=== PATIENT | male | born 1940 | race Caucasian/White ===

== ENCOUNTER 2019-06-20 07:39 | Inpatient (IN) | payer OTHER, MEDICARE ==
[~2019-06-20] VITALS: Ht 172.7 cm; Wt 90.7 kg
[2019-06-20 08:04] VITALS: BP_SYST 161
--- NOTE | 2019-06-20 08:11 | NUR ---
PATIENT PRESENTS TO THE ER WITH HX OF DIZZINESS WITH NAUSEA AND DIAPHORESIS FOR TWO DAYS; SYMPTOMS ARE POSTIONAL AND WORSEN UPON HEAD MOVEMENT TO THE RIGHT; NO TRAUMA, NO OTHER REMARKABLE S/S; PATIENT TO ER #[id number] AT 0800 AND ERMD EVALUATION AT 0810
[2019-06-20] MEDS ORDERED: ALLO100T (08:14)
[2019-06-20] MEDS ORDERED: ONDANSETRON HCL 4 MG/2 ML VIAL IVP ONE (08:15)
[2019-06-20] MEDS ORDERED: DICL75TA5 (08:19)
[2019-06-20] MEDS ORDERED: CORCR10 (08:19)
[2019-06-20] MEDS ORDERED: PERC10 (08:19)
[2019-06-20] MEDS ORDERED: HYDR-4039 (08:19)
[2019-06-20] MEDS ORDERED: SIMV20TA2 (08:19)
[2019-06-20] MEDS ORDERED: TEMA15CA (08:19)
[2019-06-20 08:40] LABS: BASOPHILS # (AUTO) 0.1 K/uL (0.0-0.2); BASOPHILS % (AUTO) 0.9 % (0.0-2.0); EOSINOPHILS # (AUTO) 0.8 K/uL (0.0-0.4); EOSINOPHILS % (AUTO) 9.7 % (0.0-4.0); HEMATOCRIT 44.3 % (36-54); LYMPHOCYTES # (AUTO) 1.8 K/uL (1.0-5.5); LYMPHOCYTES % (AUTO) 21.4 % (20.5-51.5); MEAN CORPUSCULAR HEMOGLOBIN 30 pg (27-31); MEAN CORPUSCULAR HGB CONC 34 % (32-36); MEAN CORPUSCULAR VOLUME 88 fL (79.0-98.0); MONOCYTES # (AUTO) 0.7 K/uL (0.0-1.0); MONOCYTES % (AUTO) 8.4 % (1.7-9.3); NEUTROPHILS # (AUTO) 4.9 K/uL (1.8-7.7); NEUTROPHILS % (AUTO) 59.6 % (40.0-70.0); PLATELET COUNT (AUTO) 173 K/uL (130-430); RED BLOOD CELL COUNT(AUTO) 5.02 MIL/uL (4.2-6.2); WHITE BLOOD COUNT (AUTO) 8.2 K/uL (4.8-10.8)
--- NOTE | 2019-06-20 08:45 | NUR ---
REASSESSMENT; PATIENT STATES HIS SYMPTOMS ARE RESOLVE WITH BUT MINIMAL DIZZINESS CURRENTLY; DISPOSITION PENDING
--- NOTE | 2019-06-20 08:46 | NUR ---
PATIENT WAS PLACED ON TECHNOLOGY RESOURCE TEACHER AND SAO2 UPON ADMISSION
[2019-06-20 08:50] LABS: ANION GAP 6 (5-15); CALCIUM 8.9 mg/dL (8.4-11.0); CHLORIDE 106 mmol/L (98-107); CREATININE 1.81 mg/dL (0.55-1.30); GLUCOSE 183 mg/dL (70-99); POTASSIUM 4.5 mmol/L (3.5-5.1); SODIUM SERUM 141 mmol/L (136-145); UREA NITROGEN, BLOOD 30 mg/dL (8-21)
[2019-06-20 09:05] LABS: ALANINE AMINOTRANSFERASE 31 U/L (12-78); ALBUMIN 3.5 g/dL (3.4-4.8); ASPARTATE AMINOTRANSFERASE 15 U/L (10-37); TOTAL BILIRUBIN 0.5 mg/dL (0.0-1.0)
--- NOTE | 2019-06-20 09:47 | NUR ---
REASSESSMENT; PATIENT STATES HIS SYMPTOMS ARE RESOLVED BUT WITH MINIMAL NAUSEA; DISPOSITION PENDING
[2019-06-20] MEDS ORDERED: NS 500 ML IV ONE (10:15)
[2019-06-20] MEDS ORDERED: KCL 20 mEq in 0.45% NS 1000 mL 1,000 ML IV ONE (11:15)
--- NOTE | 2019-06-20 11:16 | NUR ---
REASSESSMENT BY ERMDionne; PREPARATIONS TO ADMIT TO TELE; CALL PLACED TO DR HARMON AND ORDERS PROCESSED; PATIENT TRANSPORTED TO TELE WITH PATENT IV AND RESOLVED SYMPTOMS; IMPROVED; REPORT TO RECEIVING NURSE AT BEDSIDE
--- NOTE | 2019-06-20 11:30 | NUR ---
SOLAR MANAGER NOTES RECEIVED PATIENT FROM ER MOMO , NO DISTRESS, RESP EVEN AND UNLABORED, AMBULATORY WITH HL TO LEFT HAND G 24, PATIENT IVF TO START ONCE WITH IVF AVAIL IVF FROM PHARMACY, SAFETY ENSURED
[2019-06-20 13:14] VITALS: BP_SYST 155
--- NOTE | 2019-06-20 14:51 | NUR ---
ROUNDS PATIENT IN BED NO DISTRESS NO COMPLAIN OF CHEST PAIN
[2019-06-20] MEDS ORDERED: OXYCODONE/ACETAMINOPHEN *10*mg/325 mg TABLET PO SCH (15:30)
[2019-06-20] MEDS ORDERED: MECLIZINE HCL 25 MG TABLET (ANITVERT) PO ONE ×2 (15:45→21:00)
--- NOTE | 2019-06-20 16:00 | NUR ---
MD'S ROUNDS PATIENT SEEN BY MD HUYNH RECONCILLED
[2019-06-20 16:10] VITALS: BP_SYST 138
--- NOTE | 2019-06-20 18:56 | NUR ---
ENDORSEMENT WILL ENDORSE TO NEXT SHIFT CONT CARE , PATIENT WILL HAVE MRI W/W/O CONTRAST IN AM , WILL SECURE CONSENT ONCE PATIENT DONE EATING, NO COMPLAIN OF PAIN
[2019-06-20 19:50] VITALS: BP_SYST 146
--- NOTE | 2019-06-20 19:50 | NUR ---
INITIAL NOTE AT INITIAL ASSESSMENT, PATIENT IS RESTING IN BED, STABLE, NO SIGNS OF RESPIRATORY DISTRESS. SON IS AT BEDSIDE. PLAN OF CARE FOR THE EVENING IS COMMUNICATED WITH THE PATIENT AND HIS SON. PATIENT IS SUCCESSFUL IN DEMONSTRATION OF CORRECT USAGE OF CALL LIGHT. CALL LIGHT IS PLACED WITHIN REACH OF PATIENT. BED IS LOCKED, ALARMED, AND AT THE LOWEST LEVEL. FALL, SAFETY, AND RESPIRATORY PRECAUTIONS WILL BE TAKEN THROUGHOUT THE SHIFT.
[2019-06-20] MEDS: ALLOPURINOL 100 MG TABLET (ZYLOPRIM) PO SCH (20:56)
[2019-06-20] MEDS: TEMAZEPAM 15 MG CAPSULE PO SCH (20:58)
[2019-06-20] MEDS: hydrALAZINE HCL 25 MG TABLET PO SCH (20:58)
[2019-06-20] MEDS: MECLIZINE HCL 25 MG TABLET (ANITVERT) PO SCH (20:58)
[2019-06-20] MEDS: CARVEDILOL 25 MG TABLET (COREG) PO SCH (20:59)
--- NOTE | 2019-06-20 21:50 | NUR ---
HYGIENE CARE NOTE SCHEDULED NIGHT TIME MEDICATIONS ARE GIVEN AT THIS TIME. SON IS AT BEDSIDE. PATIENT IS RESTING IN BED, STABLE, NO SIGNS OF RESPIRATORY DISTRESS. BED IS LOCKED, ALARMED, AND AT THE LOWEST LEVEL.
[2019-06-20 22:25] VITALS: BP_SYST 146
[2019-06-20] MEDS: LevALBUTEROL HCL 1.25 MG/0.5 ML *CONC.* VIAL.NEB (XOPENEX CONC.) INH SCH (22:34)
--- NOTE | 2019-06-20 23:50 | NUR ---
NOTE PATIENT IS SLEEPING, STABLE, NO SIGNS OF RESPIRATORY DISTRESS. CALL LIGHT PLACED WITHIN REACH. BED IS LOCKED, ALARMED, AND AT THE LOWEST LEVEL.
[2019-06-21] VITALS: BP_SYST 134
--- NOTE | 2019-06-21 01:50 | NUR ---
NOTE PATIENT IS SLEEPING, STABLE, NO SIGNS OF RESPIRATORY DISTRESS. CALL LIGHT PLACED WITHIN REACH. BED IS LOCKED, ALARMED, AND AT THE LOWEST LEVEL.
--- NOTE | 2019-06-21 03:50 | NUR ---
NOTE PATIENT IS SLEEPING, STABLE, NO SIGNS OF RESPIRATORY DISTRESS. CALL LIGHT PLACED WITHIN REACH. BED IS LOCKED, ALARMED, AND AT THE LOWEST LEVEL.
--- NOTE | 2019-06-21 04:35 | NUR ---
NOTE PATIENT IS SLEEPING, STABLE, NO SIGNS OF RESPIRATORY DISTRESS. CALL LIGHT PLACED WITHIN REACH. BED IS LOCKED, ALARMED, AND AT THE LOWEST LEVEL.
--- NOTE | 2019-06-21 05:10 | NUR ---
NOTE PATIENT IS SLEEPING, STABLE, NO SIGNS OF RESPIRATORY DISTRESS. CALL LIGHT IS WITHIN REACH. BED IS LOCKED, ALARMED, AND THE LOWEST LEVEL.
--- NOTE | 2019-06-21 06:30 | NUR ---
CLOSING NOTE PATIENT SLEPT WELL THROUGHOUT THE NIGHT. AT THIS TIME, PATIENT IS RESTING IN BED, STABLE, NO SIGNS OF RESPIRATORY DISTRESS. CALL LIGHT IS WITHIN REACH. BED IS LOCKED, AND AT THE LOWEST LEVEL. FALL, SAFETY, AND RESPIRATORY PRECAUTIONS HAVE BEEN IN PLACE THROUGHOUT THE NIGHT. WILL CONTINUE TO MONITOR UNTIL SHIFT REPORT IS GIVEN AT BEDSIDE TO AM NURSE.
[2019-06-21 08:00] VITALS: BP_SYST 124
--- NOTE | 2019-06-21 08:00 | NUR ---
ASSUMPTION OF CARE: RECEIVED PT ASLEEP, AROUSED VIA VERBAL STIMULI, DX: RISK FOR INJURY, R/T DEHYDRATION, DIZZINESS, VSS, AFEBRILE, NO S/S OF DISTRESS, PT HAS ELEVATED BUN/CREAT=30/1.81, MPhilippe AWARE. BREATH SOUNDS ARE CLEAR, BREATHING UNLABORED, SATURATING 95% ORA, IV SITE INTACT, PATENT, NO REDNESS OR SWELLING, ORIENTED TO UNIT, CALL LIGHT PLACED WITHIN REACH, WILL CONT' TO MONITOR AND ASSESS.
[2019-06-21] MEDS: LevALBUTEROL HCL 1.25 MG/0.5 ML *CONC.* VIAL.NEB (XOPENEX CONC.) INH SCH ×2 (09:25→15:35)
--- NOTE | 2019-06-21 10:00 | NUR ---
CVT RN: MORNING MEDS GIVEN, PER ORDERED BY Viridiana, TOLERATED WELL, PT EDUCATED ON PURPOSE FOR EACH MED GIVEN, VERBALIZES UNDERSTANDING, CALL LIGHT PLACED WITHIN REACH, WILL CONT' TO MONITOR AND ASSESS.
[2019-06-21] MEDS: hydrALAZINE HCL 25 MG TABLET PO SCH ×3 (10:13→20:28)
[2019-06-21] MEDS: MECLIZINE HCL 25 MG TABLET (ANITVERT) PO SCH ×2 (10:13→20:22)
[2019-06-21] MEDS: CARVEDILOL 25 MG TABLET (COREG) PO SCH ×2 (10:14→20:27)
[2019-06-21] MEDS: SIMVASTATIN 20 MG TABLET PO SCH (10:14)
[2019-06-21 11:30] VITALS: BP_SYST 134
--- NOTE | 2019-06-21 12:00 | NUR ---
NURSES NOTES: PT RESTING IN POSITION OF COMFORT, NO DISTRESS, NO C/O PAIN, CALL LIGHT PLACED WITHIN REACH, WILL CONT' WITH POC.
[2019-06-21 16:00] VITALS: BP_SYST 140
--- NOTE | 2019-06-21 18:00 | NUR ---
END OF SHIFT: PT UP SITTING ON SIDE OF BED WHILE EATING DINNER MEAL, NO REQUEST MADE AT THIS TIME, NEEDS MET, WILL CONT TO MONITOR, WILL ENDORSE TO SMOKING PIPE MAKER NURSE.
[2019-06-21 19:50] VITALS: BP_SYST 153
--- NOTE | 2019-06-21 19:50 | NUR ---
INITIAL NOTE AT INITIAL ASSESSMENT, PATIENT IS RESTING IN BED, STABLE, NO SIGNS OF RESPIRATORY DISTRESS. PLAN OF CARE FOR THE EVENING IS COMMUNICATED WITH THE PATIENT. HE VERBALIZES NO PAIN AT THIS TIME. PATIENT IS SUCCESSFUL IN DEMONSTRATION OF CORRECT USAGE OF CALL LIGHT. CALL LIGHT IS PLACED WITHIN REACH OF PATIENT. BED IS LOCKED, ALARMED, AND AT THE LOWEST LEVEL. FALL, SAFETY, AND RESPIRATORY PRECAUTIONS WILL BE TAKEN THROUGHOUT THE SHIFT.
[2019-06-21] MEDS: TEMAZEPAM 15 MG CAPSULE PO SCH (20:22)
[2019-06-21] MEDS: ALLOPURINOL 100 MG TABLET (ZYLOPRIM) PO SCH (20:22)
[2019-06-22] VITALS: BP_SYST 131
--- NOTE | 2019-06-22 06:05 | NUR ---
CLOSING NOTE NO CHANGES. PATIENT SLEPT WELL THROUGHOUT THE NIGHT. AT THIS TIME, PATIENT IS RESTING IN BED, STABLE, NO SIGNS OF RESPIRATORY DISTRESS. CALL LIGHT IS WITHIN REACH. BED IS LOCKED, AND AT THE LOWEST LEVEL. FALL, SAFETY, AND RESPIRATORY PRECAUTIONS HAVE BEEN IN PLACE THROUGHOUT THE NIGHT. WILL CONTINUE TO MONITOR UNTIL SHIFT REPORT IS GIVEN AT BEDSIDE TO AM NURSE.
[2019-06-22 07:42] LABS: BASOPHILS # (AUTO) 0.1 K/uL (0.0-0.2); BASOPHILS % (AUTO) 0.7 % (0.0-2.0); EOSINOPHILS # (AUTO) 0.8 K/uL (0.0-0.4); EOSINOPHILS % (AUTO) 8.1 % (0.0-4.0); HEMATOCRIT 44.7 % (36-54); HEMOGLOBIN 15.1 g/dL (14.0-18.0); LYMPHOCYTES # (AUTO) 1.9 K/uL (1.0-5.5); LYMPHOCYTES % (AUTO) 19.4 % (20.5-51.5); MEAN CORPUSCULAR HEMOGLOBIN 30 pg (27-31); MEAN CORPUSCULAR HGB CONC 34 % (32-36); MEAN CORPUSCULAR VOLUME 89 fL (79.0-98.0); MONOCYTES % (AUTO) 9.6 % (1.7-9.3); NEUTROPHILS # (AUTO) 6.1 K/uL (1.8-7.7); NEUTROPHILS % (AUTO) 62.2 % (40.0-70.0); PLATELET COUNT (AUTO) 180 K/uL (130-430); RED BLOOD CELL COUNT(AUTO) 5.02 MIL/uL (4.2-6.2); RED CELL DISTRIBUTION WIDTH 12.9 % (9.0-15.0); WHITE BLOOD COUNT (AUTO) 9.9 K/uL (4.8-10.8)
[2019-06-22 07:53] LABS: ANION GAP 8 (5-15); CALCIUM 8.5 mg/dL (8.4-11.0); CHLORIDE 104 mmol/L (98-107); CREATININE 1.83 mg/dL (0.55-1.30); GLUCOSE 129 mg/dL (70-99); POTASSIUM 4.5 mmol/L (3.5-5.1); SODIUM SERUM 139 mmol/L (136-145); UREA NITROGEN, BLOOD 31 mg/dL (8-21)
[2019-06-22 08:00] VITALS: BP_SYST 134
[2019-06-22] MEDS: LevALBUTEROL HCL 1.25 MG/0.5 ML *CONC.* VIAL.NEB (XOPENEX CONC.) INH SCH ×2 (08:00→15:29)
--- NOTE | 2019-06-22 08:00 | NUR ---
ASSUMPTION OF CARE: RECEIVED PT ASLEEP, AROUSED VIA VERBAL STIMULI, DX: RISK FOR INJURY, R/T DEHYDRATION, DIZZINESS, VSS, AFEBRILE, NO S/S OF DISTRESS, M.D. AWARE. BREATH SOUNDS ARE CLEAR, BREATHING UNLABORED, SATURATING 96% ORA, IV SITE INTACT, PATENT, NO REDNESS OR SWELLING, ORIENTED TO UNIT, CALL LIGHT PLACED WITHIN REACH, WILL CONT' TO MONITOR AND ASSESS.
--- NOTE | 2019-06-22 09:00 | NUR ---
DYEING MACHINE TENDER: MORNING MEDS GIVEN, PER ORDERED BY Viridiana, TOLERATED WELL, PT EDUCATED ON PURPOSE FOR EACH MED GIVEN, VERBALIZES UNDERSTANDING, CALL LIGHT PLACED WITHIN REACH, WILL CONT' TO MONITOR AND ASSESS.
[2019-06-22] MEDS: hydrALAZINE HCL 25 MG TABLET PO SCH ×2 (09:04→16:56)
[2019-06-22] MEDS: MECLIZINE HCL 25 MG TABLET (ANITVERT) PO SCH (09:04)
[2019-06-22] MEDS: SIMVASTATIN 20 MG TABLET PO SCH (09:05)
[2019-06-22] MEDS: CARVEDILOL 25 MG TABLET (COREG) PO SCH (09:05)
[2019-06-22 12:00] VITALS: BP_SYST 117
--- NOTE | 2019-06-22 12:00 | NUR ---
NURSES NOTES: PT RESTING IN POSITION OF COMFORT, NO DISTRESS, NO C/O PAIN, CALL LIGHT PLACED WITHIN REACH, WILL CONT' WITH POC.
--- NOTE | 2019-06-22 12:00 | NUR ---
NURSES NOTES: PT RESTING IN POSITION OF COMFORT, NO DISTRESS, NO C/O PAIN, CALL LIGHT PLACED WITHIN REACH, WILL CONT' WITH POC.
[2019-06-22 16:00] VITALS: BP_SYST 154
--- NOTE | 2019-06-22 17:00 | NUR ---
DISCHARGE: PT HAS ORDER FOR DISCHARGE TO HOME, INSTRUCTIONS GIVEN WITH PRESCRIPTION AND APPT. DATE, FAMILY MEMBER INFORMED, SON AT BEDSIDE FOR TRANSPORT OF PT, ALL BELONGINGS ACCOUNTS FOR AND RETURNED TO PT, STAFF WILL ACCOMPANY TO PRIVATE AUTO.
[2019-06-22 17:21] VITALS: BP_SYST 154
--- NOTE | 2019-06-27 13:31 | NUR ---
Discharge Follow Up Phone Call Phoned patient, . Patient stated he was much improved. He filled his prescription and has a follow up appointment made with his PCP, Dr Stockton. He had no questions or concerns.
== END 2019-06-22 18:00 | disposition home or self-care (01) | DRG 149 ==
LOC: SED 07:39 → STU 11:06
PROVIDERS: ADMIT Family Medicine; ATTEND Family Medicine
DX: H81.90 Unspecified disorder of vestibular function, unspecified ear (principal); I12.9 Hypertensive chronic kidney disease with stage 1 through stage 4 chronic kidney disease, or unspecified chronic kidney disease; M10.9 Gout, unspecified; N18.9 Chronic kidney disease, unspecified; M19.90 Unspecified osteoarthritis, unspecified site; Z79.899 Other long term (current) drug therapy; Z88.5 Allergy status to narcotic agent
CPT/HCPCS: 36415; 70450-TC; 71045; 80048; 80053; 82550-TC; 83880; 84484; 85025; 93880; 94640; 94760; 96374; 99285; A5061; G0378; J2405; J3480; J7060; J7612; J8597

== ENCOUNTER → 2023-10-26 | Emergency (ER) | payer OTHER, MEDICARE ==
[~2023-10-26] VITALS: Ht 172.7 cm; Wt 90.7 kg
[~2023-10-26] MED LIST: ALLO100T; PERC10; SIMV-343; TEMA15CA
[2023-10-26 22:00] VITALS: BP_SYST 168; PULSE 83; RESP 16; TEMP 97.8; O2SAT 96
[2023-10-26 22:51] VITALS: BP_SYST 152; PULSE 70; RESP 16; TEMP 97.8; O2SAT 96
== END | disposition home or self-care (01) ==
LOC: SED 21:49
DX: I10 Essential (primary) hypertension (principal); Z88.5 Allergy status to narcotic agent
CPT/HCPCS: 99281